=== PATIENT | female | born 1955 | race Caucasian/White ===

== ENCOUNTER → 2016-05-12 | Outpatient (CLI) | payer BC ==
[2016-05-12 12:01] LABS: EKG EKG PERFORMED
[2016-05-12 12:33] LABS: Basophils % (A) 1 %; CH 30.2; CHCM 32.2; Eosinophils # (A) 0.1 k/uL (0-0.7); Eosinophils % (A) 1 %; HCT 43.3 % (34.0-46.0); HDW 2.37; HGB 13.6 gm/dL (11.4-16.0); Luc # (Auto) 0.25; Luc % (Auto) 4; Lymphocytes # (A) 1.4 k/uL (1.0-4.8); Lymphocytes % (A) 25 %; MCH 29.6 pg (25.0-35.0); MCHC 31.4 g/dL (31.0-37.0); MCV 94.3 fL (80.0-100.0); Mean Platelet Volume 6.9; Monocytes # (A) 0.3 k/uL (0-1.0); Monocytes % (A) 6 %; Neutrophils # (A) 3.6 k/uL (1.3-7.7); Neutrophils % (A) 63 %; RBC 4.59 m/uL (3.80-5.40); RDW 13.1 % (11.5-15.5); WBC 5.7 k/uL (3.8-10.6); WBC (Perox) 6.27
[2016-05-12 12:41] LABS: Anion Gap 12 mmol/L; Blood Urea Nitrogen 6 mg/dL (7-17); Calcium 9.6 mg/dL (8.4-10.2); Carbon Dioxide 27 mmol/L (22-30); Chloride 105 mmol/L (98-107); Glucose 99 mg/dL (74-99); Non-African American GFR(MDRD) >60 (>60 ml/min/1.73 sqM); Potassium 4.5 mmol/L (3.5-5.1); Sodium 144 mmol/L (137-145)
== END | disposition home or self-care (01) ==
LOC: LABPAT 11:50
PROVIDERS: ATTEND Urology
DX: Z01.810 Encounter for preprocedural cardiovascular examination (principal); Z01.812 Encounter for preprocedural laboratory examination; I10 Essential (primary) hypertension; R35.0 Frequency of micturition; E03.9 Hypothyroidism, unspecified; N39.3 Stress incontinence (female) (male)
CPT/HCPCS: 80048; 85025; 87086; 93005

== ENCOUNTER 2016-05-19 07:53 | Observation (INO) | payer BC ==
[2016-05-13 15:42] VITALS: BMI 28.1
[~2016-05-19 07:53] MED LIST: DEXAMETHASONE SOD PHOSPHATE 10 MG/ML 1 ML VIAL IV ONE; GENTAMICIN 120 MG in SODIUM CHLORIDE 0.9% 100 ML IVPB ONE; HYDROmorphone 1 MG/ML 1 ML SYRINGE IVP PRN; LACTATED RINGERS 1,000 ML IV SCH; ONDANSETRON 4 MG/2 ML VIAL IVP ONE; ceFAZolin 2 GM in SODIUM CHLORIDE 0.9% 100 ML IVPB ONE
[2016-05-19] MEDS ORDERED: LIDOCAINE 1% 20 ML VIAL (10MG/ML) FOR IV START INTRADERMA ONE (08:18)
[2016-05-19] MEDS ORDERED: SUCCINYLCHOLINE CHLORIDE VIAL 200 MG/10 ML VIAL IV ONE (08:37)
[2016-05-19] MEDS ORDERED: PROPOFOL 10 MG/ML 20 ML VIAL IV ONE (08:37)
[2016-05-19] MEDS ORDERED: MIDAZOLAM 2 MG/2 ML VIAL ONE (08:37)
[2016-05-19] MEDS ORDERED: fentaNYL (PF) 50 MCG/ML 2 ML AMP ONE (08:37)
[2016-05-19] MEDS ORDERED: LIDOCAINE 1% INJ 10MG/ML (20 ML MDV) ONE (08:37)
[2016-05-19] MEDS ORDERED: ePHEDrine 50 MG/ML 1 ML AMP ONE (08:37)
[2016-05-19] MEDS ORDERED: BUPIVACAIN-EPI 0.5%-1:200,000 30 ML VIAL SQ ONE (09:02)
[2016-05-19] MEDS ORDERED: GENTAMICIN 80 MG in SODIUM CHLORIDE 0.9% 500 ML IRRIGATION ONE (09:03)
[2016-05-19] MEDS ORDERED: BACITRACIN 500 UNIT/GM OINT 28.4 GM TUBE TOPICAL ONE (09:05)
--- NOTE | 2016-05-19 09:38 | P.OP ---
Date of Procedure: 05/19/16 Preoperative Diagnosis: Stress Urinary Incontinence Postoperative Diagnosis: Same Procedure(s) Performed: Obtryx Trans-Obturator Sling Anesthesia: KOFI Surgeon: Andrés Porras Estimated Blood Loss (ml): 20 IV fluids (ml): 500 Pathology: none sent Condition: stable Disposition: PACU Indications for Procedure: She is a 60 year old woman with mild stress incontinence, which requres the use of one pad daily. Examination reveals urethral hypermobility, and stress incontinence is demonstrated only when the patient coughs while standing. This is consistent with type II stress incontinence, and she has elected to undergo a TOT sling. Operative Findings: No abnormalities noted. No complications. Description of Procedure: The patient was taken to the operating room and placed in the dorsal lithotomy position, with her legs supported in Juan stirrups. The perineum, lower abdomen, and vagina were prepped and draped sterilely. A 16-[place] Giordano catheter was placed. 0.5% Marcaine with epinephrine was injected submucosally within the anterior vaginal wall, over the urethra. The scalpel was then used to make an anterior midline vaginal incision over the urethra. Metzenbaum scissors were used to dissect laterally within the submucosal plane, to the inferior pubic ramus. The scalpel was used to make bilateral groin incisions at the level of the clitoris. Subcutaneous tissues were spread with a hemostat. Each of the helical needles were passed through the respective groin incision, and turned such that the needle tip wrapped around the pubis. The needle tips were guided digitally into the vaginal incision. The Obtryx graft, which had been previously soaked in antibiotic solution, was secured to the needle tips in the standard fashion. The needles were then withdrawn, and the position of the graft was adjusted such that it overlie the mid urethra, as desired. With a hemostat placed between the graft and the urethra to prevent tension of the graft over the urethra, the plastic sheath was removed from the ends of the graft. The ends of the graft were cut beneath the skin incisions, and these incisions were closed using 4-0 Vicryl suture in a subcuticular fashion. Hemostasis within the vaginal incision was adequate, and the vaginal incision was closed using 2-0 Vicryl suture in a running fashion. Cystoscopy was performed. The 30 lens was used to introduce the 17-[place] Storz cystoscopic sheath through the urethra and into the bladder under direct vision. The urethra and bladder were unremarkable. There was no evidence of perforation. Both ureteral orifices were of normal anatomic location and configuration, and clear urine effluxed from both. No tumors or foreign bodies were seen. The cystoscope was removed, and the Giordano catheter was replaced into the bladder. All sponge and needle counts were correct. The patient tolerated the procedure well was taken to the recovery room in stable condition.
[2016-05-19] MEDS ORDERED: ONDANSETRON 4 MG/2 ML VIAL IVP PRN (09:39)
[2016-05-19] MEDS ORDERED: HYDROcodone/APAP 5-325MG 1 EACH TAB PO PRN ×2 (09:43)
[2016-05-19] MEDS: KETOROLAC 30 MG/ML 1 ML VIAL IVP PRN ×2 (14:09→20:38)
[2016-05-19] MEDS: DEXTROSE 5%-0.45% NACL 1,000 ML IV SCH (14:10)
[2016-05-19] MEDS: ceFAZolin 1,000 MG in DEXTROSE/WATER 1 50ML.BAG IVPB SCH (15:54)
[2016-05-19] MEDS ORDERED: ceFAZolin 1 GM in SODIUM CHLORIDE 0.9% 100 ML IVPB SCH (16:00)
[2016-05-19] MEDS ORDERED: ATORVASTATIN 10 MG TAB PO SCH (21:00)
[2016-05-20] MEDS: ceFAZolin 1,000 MG in DEXTROSE/WATER 1 50ML.BAG IVPB SCH ×2 (00:24→09:09)
[2016-05-20] MEDS: DEXTROSE 5%-0.45% NACL 1,000 ML IV SCH (03:55)
[2016-05-20] MEDS ORDERED: LEVOTHYROXINE 25 MCG TAB PO SCH (06:30)
[2016-05-20] MEDS ORDERED: ESTRADIOL 0.5 MG TAB PO SCH (09:00)
[2016-05-20] MEDS: FLUoxetine HCL 10 MG CAP PO SCH ×2 (09:08→10:24)
[2016-05-20] MEDS: KETOROLAC 30 MG/ML 1 ML VIAL IVP PRN (09:08)
[2016-05-20 12:17] VITALS: BP 126/79; PULSE 80; RESP 20; TEMP 97.3
--- NOTE | 2016-05-20 13:09 | P.DS ---
Providers Date of admission: 05/19/16 22:26 Expected date of discharge: 05/20/16 Attending physician: Andrés Porras Primary care physician: [facility] Course: Patient underwent Obtryx sling on 05/19/2016. Post-op course was unremarkable. Patient remained afebrile with stable vital signs. Giordano was removed 05/20/16, and she subsequently voided without difficulty. She denied incontinence and was comfortable. PVR's were low. Incisions were clean and dry. She reported mild vaginal spotting. Procedures: Obtryx sling on 05/19/2016. Patient Condition at Discharge: Good Plan - Discharge Summary New Discharge Prescriptions: Cephalexin [Keflex] 500 mg PO Q8HR #15 cap Hydrocodone/Acetaminophen [[place] 5-325] 1 - 2 each PO Q4HR PRN #20 tab PRN Reason: Pain Discharge Medication List Calcium Carbonate/Vitamin D3 [Calcium 500-Vit D3 600 Tablet] 1 tab PO DAILY 12/20 [History] Estradiol 0.5 mg PO DAILY 05/13/16 [History] FLUoxetine HCL 30 mg PO DAILY 05/13/16 [History] Fish Oil/Dha/Epa [Fish Oil 1,200 mg Fish Oil] 1 cap PO DAILY 05/13/16 [History] Gluc/Tapan-MSM#1/C/Edilberto/Prabhu/Bor [Glucosamine-Chondroitin Tablet] 1 tab PO DAILY 05/13/16 [History] Levothyroxine Sodium [Synthroid] 25 mcg PO DAILY 05/13/16 [History] Multivit-Min/FA/Lycopene/Lut [Centrum Silver Tablet] 1 tab PO DAILY 05/13/16 [ History] Simvastatin [Zocor] 20 mg PO HS 05/13/16 [History] Cephalexin [Keflex] 500 mg PO Q8HR #15 cap 05/20/16 [Rx] Hydrocodone/Acetaminophen [[place] 5-325] 1 - 2 each PO Q4HR PRN #20 tab 05/20/16 [Rx] Follow up Appointment(s)/Referral(s): Andrés Porras MD [STAFF PHYSICIAN] - 05/26/16 Patient Instructions/Handouts: Hydrocodone/Acetaminophen (By mouth), Ketorolac (By injection), Bladder Sling Procedure (DC), Bladder Sling Procedure (GEN) Activity/Diet/Wound Care/Special Instructions: No lifting, driving, strenuous activity. OK to shower 05/21/16. Discharge Disposition: HOME SELF-CARE
== END 2016-05-20 13:30 | disposition home or self-care (01) ==
LOC: OR 07:53 → 6PED 09:45 → OR 22:26 → 6PED 22:26
PROVIDERS: ADMIT Urology; ATTEND Urology
DX: N39.3 Stress incontinence (female) (male) (principal); N36.41 Hypermobility of urethra; I10 Essential (primary) hypertension; E03.9 Hypothyroidism, unspecified; Z79.899 Other long term (current) drug therapy; Z88.5 Allergy status to narcotic agent; Z88.8 Allergy status to other drugs, medicaments and biological substances
CPT/HCPCS: 57288; G0378 ×2; C1771; J2250; J0330; J1580 ×2; J1100; J0690 ×3; J2405; J2001; J3010; J1885 ×2; J2704; 96374